=== PATIENT | male | born 1980 | race Caucasian/White ===

== ENCOUNTER 2017-10-08 09:45 | Outpatient (CLI) | payer BC ==
[2017-10-08 10:38] LABS: eGFR (African) > 60; eGFR (Non-African) > 60
== END 2017-10-08 09:46 ==
LOC: LAB 09:45
PROVIDERS: ATTEND Family Medicine
DX: Z00.00 Encounter for general adult medical examination without abnormal findings (principal)
CPT/HCPCS: 36415; 80053; 80061

== ENCOUNTER 2018-10-18 07:28 | Day surgery (SDC) | payer BC ==
[2018-10-18] MEDS ORDERED: PROPOFOL 200 MG/20 ML VIAL IV ONE (08:48)
[2018-10-18] MEDS ORDERED: LIDOCAINE HCL 2% PF 100MG/5ML VIAL IJ ONE (08:48)
[2018-10-18] MEDS ORDERED: LACTATED RINGERS 1,000 ML IV.SOLN IV ONE (08:48)
--- NOTE | 2018-10-18 13:16 | GI Report ---
REFERRING PHYSICIAN: Dr. Elyse Pelaez INFORMATION CONSULTANT: Giovanny Marquez MD PROCEDURE MEDICATION: Propofol as per anesthesia. INDICATIONS: Patient has had progressive dysphagia for solids. Particularly bothersome are sandwiches and meats. Occasionally, he can drink liquid and wash it down. On occasion, he has to go vomit it back up. He does have some heartburn. He did have a history of a lot of seasonal allergies as a child but is on no medication. No obvious asthma. No known food allergies. He is 6 feet 2 inches and weighs 270. PROCEDURE PERFORMED: Endoscopy and biopsies and esophageal dilatation. PROCEDURE: An LEAPIN [employer] video endoscope is passed through the esophagus under direct visualization. Patient has rings suggestive of eosinophilic esophagitis with just slight narrowing. Mild esophagitis of the GE junction. The stomach is entered, cardia and fundus, shows a small hiatal hernia. Body of antrum looked normal. Pylorus is open. Duodenal bulb and first part of the duodenum are normal. A guidewire was placed. Endoscope was removed. A 15 mm, 16 mm, and 17 mm Savary dilator passed over the guidewire without resistance. The endoscope was reintroduced and there really was no obvious bleeding. We did take biopsies to send to pathology to confirm eosinophilic esophagitis. A guidewire was replaced. Endoscope removed and up to a 54 Savory passed without resistance. Endoscope was again reintroduced. Just a little friability but no active bleeding. The patient tolerated the procedure well. FINDINGS: 1. Esophageal rings suggestive of eosinophilic esophagitis. 2. Esophageal dilatation up to a 54 Sinhala, which is an 18 mm. 3. Biopsies taken. 4. Hiatal hernia. RECOMMENDATIONS: 1. He needs to be on a PPI daily, like omeprazole 40 mg before his first meal daily. 2. Recommend to avoid cold liquids with meals. 3. If biopsies suggest eosinophilic esophagitis, he will be on a 6 food elimination diet for a couple of months and then gradually re-introducing the foods, particularly bothersome are wheat, milk, soy, egg, shellfish, and peanuts. 4. Would sleep with the head of the bed elevated. 5. If his swallowing still does not improve, then would consider a barium swallow or esophageal motility to see if there is some underlying motility issue. 6. Again, he is going to need to stay for an indefinite period of time on a PPI, meaning several years. cc: Dr. Elyse BLANK
== END 2018-10-18 10:40 | disposition home or self-care (01) ==
LOC: OPSURG 07:28
PROVIDERS: ATTEND Internal Medicine Gastroenterology
DX: K20.0 Eosinophilic esophagitis (principal); K44.9 Diaphragmatic hernia without obstruction or gangrene; R13.10 Dysphagia, unspecified
CPT/HCPCS: 43239; 43248; J2001; J2704; J7120; S1016